=== PATIENT | male | born 1935 | race Caucasian/White ===

== ENCOUNTER → 2018-09-22 12:57 | Outpatient (CLI) | payer MEDICARE, OTHER | END | disposition home or self-care (01) | LOC: D.RT 12:57 | PROVIDERS: ATTEND Internal Medicine Pulmonary Disease | DX: J44.9 Chronic obstructive pulmonary disease, unspecified (principal) ==

== ENCOUNTER 2019-09-04 12:57 | Emergency (ER) | payer MEDICARE, OTHER ==
[~2019-09-04] VITALS: Ht 182.9 cm; Wt 90.9 kg
[2019-09-04 13:07] VITALS: BP 135/78; Ht 182.9 cm; Wt 90.9 kg
[2019-09-04] MEDS ORDERED: OMEPRAZOLE20 M1 PO (13:08)
[2019-09-04] MEDS ORDERED: VITAMIN B-121000 MCG IM (13:09)
[2019-09-04] MEDS ORDERED: LEVO-T125 MCG PO (13:09)
[2019-09-04] MEDS ORDERED: ZETIA10 MG PO (13:10)
[2019-09-04] MEDS ORDERED: COZAAR50 MG PO (13:10)
[2019-09-04] MEDS ORDERED: ALBUTEROL SULF8.5 GM INH (13:10)
[2019-09-04 13:41] LABS: BASOPHILS 0.2 % (0-2); HEMATOCRIT 40.1 % (42.0-54.0); HEMOGLOBIN 13.2 g/dL (13.5-17.5); IMMATURE GRANULOCYTES 0.2 % (0-5); LYMPHOCYTES 17.1 % (15-50); MCH 31.3 pg (26.0-34.0); MCHC 32.9 g/dL (31.0-37.0); MEAN PLATELET VOLUME 9.1 fL (7.4-10.4); MONOCYTES 7.7 % (2-11); NEUTROPHILS 72.8 % (40-80); PLATELET COUNT 308 10x3/uL (130-400); RBC 4.22 10x6/uL (4.20-6.10); WBC 9.9 10x3/uL (4.8-10.8)
[2019-09-04 13:46] LABS: CALC OSMOLALITY 275 mosm/kg (275-300); CALCIUM 9.2 mg/dL (8.5-10.1); CHLORIDE - SERUM 102 mmol/L (98-107); CREATININE - SERUM 1.6 mg/dL (0.6-1.3); GLUCOSE 105 mg/dL (74-106); INR 1.01 (0.85-1.17); POTASSIUM - SERUM 4.3 mmol/L (3.5-5.1); PROTIME 13.2 SECONDS (11.6-15.0); SODIUM 137 mmol/L (136-145); UREA NITROGEN 17 mg/dL (7-18); eGFR NON AFRICAN AMERICAN 44 mL/min (90-120)
[2019-09-04 13:47] LABS: APTT 33.7 SECONDS (22.8-39.4)
[2019-09-04 14:13] LABS: ALBUMIN 3.6 g/dL (3.4-5.0); ALKALINE PHOSPHATASE 67 U/L (30-120); ALT (SGPT) 19 U/L (10-68); BILIRUBIN - TOTAL 0.73 mg/dL (0.2-1.3); CKMB 0.9 U/L (0.0-3.6); CREATINE KINASE 77 UL (21-232); PRO BNP 115 pg/mL (0-450); PROTEIN - SERUM 7.8 g/dL (6.4-8.2); TROPONIN-I < 0.017 ng/mL (0.000-0.060)
[2019-09-04] MEDS ORDERED: LEVOFLOXACIN500 MG PO (16:29)
[2019-09-04] MEDS ORDERED: MUCINEX600 MG PO (16:29)
== END 2019-09-04 16:51 | disposition home or self-care (01) ==
LOC: D.ER 12:57
PROVIDERS: Emergency Medicine
DX: J20.9 Acute bronchitis, unspecified (principal); E07.9 Disorder of thyroid, unspecified; I10 Essential (primary) hypertension; K21.9 Gastro-esophageal reflux disease without esophagitis